=== PATIENT | male | born 1975 | race Caucasian/White ===

== ENCOUNTER 2016-03-09 08:33 | Emergency (ER) | payer OTHER ==
[2016-03-09 08:40] VITALS: BP 132/82
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
== END 2016-03-09 09:36 | disposition home or self-care (01) ==
LOC: P.ED 08:33
DX: M25.552 Pain in left hip (principal); Z96.60 Presence of unspecified orthopedic joint implant; V89.2XXA Person injured in unspecified motor-vehicle accident, traffic, initial encounter
CPT/HCPCS: 73522; 99283